=== PATIENT | female | born 1970 | race Two or more races ===

== ENCOUNTER 2017-10-25 13:08 | Emergency (ER) | payer OTHER ==
[~2017-10-25] VITALS: Ht 165.1 cm; Wt 61.2 kg
--- NOTE | 2017-10-25 14:26 | NUR ---
RECIEVED PATIENT TO ED BED 12 FOR S/P UNWITNESSED SYNCOPE WEDNESDAY NIGHT, NOTED WITH ABRASION TO L FOREHEAD L SIDE BLACK EYE. NO NEURO DEFICITS, AMB STEADY GAIT, NO VISION CHANGES. NAD VSS RR EVEN AND UNLABORED. PENDING ER MD EVALUATION
--- NOTE | 2017-10-25 15:40 | NUR ---
Patient discharged to home in stable condition. Written and verbal after care instructions given. Patient verbalizes understanding of instruction.
[2017-10-25 15:41] VITALS: BP 138/78
== END 2017-10-25 15:41 | disposition home or self-care (01) ==
LOC: ER 13:10
DX: S13.4XXA Sprain of ligaments of cervical spine, initial encounter (principal); S00.12XA Contusion of left eyelid and periocular area, initial encounter; F10.10 Alcohol abuse, uncomplicated; Y90.9 Presence of alcohol in blood, level not specified; Z60.2 Problems related to living alone; W18.39XA Other fall on same level, initial encounter; Y93.89 Activity, other specified; Y92.89 Other specified places as the place of occurrence of the external cause; Y99.8 Other external cause status
CPT/HCPCS: 70450; 72125; 93005; 99284; A4606; Z7610